=== PATIENT | female | born 1995 | race Caucasian/White ===

== ENCOUNTER 2019-08-25 10:22 | Emergency (ER) | payer OTHER ==
--- NOTE | 2019-08-25 11:05 | ER Document Report ---
HPI - HPI Patient complains to provider of: sore throat Time Seen by Provider: 08/25/19 10:59 Pain Level: 4 Context: This 24-year-old female presents emergency department with complaints of sore throat. Reports she had the flu vaccine on started having body aches an hour later. Reports her throat started hurting on Monday she had a fever on Monday. Denies vomiting and diarrhea. Reports she is been taking Advil for the pain. No known exposure to strep. Associated Symptoms: Fever, Sore throat Exacerbated by: Denies Relieved by: Denies Similar symptoms previously: No Recently seen / treated by doctor: No - EENT EENT: REPORTS: Sore Throat - RESPIRATORY Respiratory: REPORTS: Coughing - REPRODUCTIVE Reproductive: DENIES: : Past Medical History - General Information source: Patient - Social History Smoking Status: Never Smoker Frequency of alcohol use: Occasional Drug Abuse: None Lives with: Family Family History: None Patient has suicidal ideation: No Patient has homicidal ideation: No Surgical Hx: Negative Vertical Provider Document - CONSTITUTIONAL Agree With Documented VS: Yes Exam Limitations: No Limitations General Appearance: WD/WN, No Apparent Distress - looks like she doesn't feel well but nontoxic looking - INFECTION CONTROL TRAVEL OUTSIDE OF THE [place] IN LAST 30 DAYS: No - HEENT HEENT: Atraumatic, Normocephalic, Pharyngeal Erythema - Pharyngeal erythema noted no tonsillar exudate opens mouth wide good airway no trismus clear voice no peritonsillar abscess noted - NECK Neck: Normal Inspection, Supple. negative: Lymphadenopathy-Left, Lymphadenopathy-Right - RESPIRATORY Respiratory: Breath Sounds Normal, No Respiratory Distress. negative: Rhonchi, Wheezing - CARDIOVASCULAR Cardiovascular: Regular Rate, Regular Rhythm - MUSCULOSKELETAL/EXTREMETIES Musculoskeletal/Extremeties: MAEW, FROM - NEURO Level of Consciousness: Awake, Alert, Appropriate Motor/Sensory: No Motor Deficit - DERM Integumentary: Warm, Dry, No Rash Course - Re-evaluation Re-evalutation: 08/25/19 11:46 25-year-old female presents with sore throat does not feel good. Reports history of flu vaccine on body aches and sore throat with fever last night. Strep test was negative. She was instructed on the importance of pushing fluids [facility] She was also instructed on throat culture pending will receive a call should she need antibiotics. She verbalized understand all instructions. Patient has a clear voice respiratory rate even unlabored. Dictation of this chart was performed using voice recognition software; therefore, there may be some unintended grammatical errors. - Vital Signs Vital signs: Temp Pulse Resp BP Pulse Ox 98.7 F 96 18 117/51 L 99 08/25/19 10:29 08/25/19 10:29 08/25/19 10:29 08/25/19 10:29 08/25/19 10:29 Discharge - Discharge Clinical Impression: Sore throat Condition: Stable Disposition: HOME, SELF-CARE Instructions: Sore Throat ([facility]) Additional Instructions: *You have been evaluated for a sore throat Your strep test was negative. A throat culture is pending. You may be contacted in 3 to 4 days should you need antibiotic. In the meantime gargle with warm salt water's in suck on throat lozenges for comfort *Do not let anyone drink/eat after you *Good hand washing *Follow-up with a primary care provider within 1 week. *Return to ED for worsening condition change, needs, trouble swallowing, concerns.
[2019-08-25 11:37] VITALS: BP 107/64
== END 2019-08-25 11:35 | disposition home or self-care (01) ==
LOC: ER 10:22
DX: J02.9 Acute pharyngitis, unspecified (principal); R50.9 Fever, unspecified
CPT/HCPCS: 87070; 87880; 99283

== ENCOUNTER 2020-04-03 14:48 | Emergency (ER) | payer OTHER ==
--- NOTE | 2020-04-03 15:19 | ER Document Report ---
ED Medical Screen (RME) - General Chief Complaint: Abnormal Lab Results Stated Complaint: ABNORMAL LABS Time Seen by Provider: 04/03/20 15:10 Primary Care Provider: LAUREN KNOWLES [Primary Care Provider] - Follow up as needed Notes: Patient is a 24-year-old female who presents to the emergency department with multiple complaints. Patient states that she has a "lump" to the back of her ear. She also has a little bit of chest pain and a sore throat. She saw her primary care provider and was referred here to the emergency department for evaluation of her thyroid and her "lump." Patient states that she is having hea daches from the "lump." Exam: Shoddy raised bump noted to left ear. Slightly enlarged feeling thyroid. I have greeted and performed a rapid initial assessment of this patient. A comprehensive ED assessment and evaluation of the patient, analysis of test results and completion of medical decision making process will be conducted by an additional ED providers. TRAVEL OUTSIDE OF THE [place] IN LAST 30 DAYS: No - Related Data Allergies/Adverse Reactions: No Known Allergies Allergy (Verified 08/25/19 11:22) Home Medications: Singulair. flonase. paxil Past Medical History - Social History Chew tobacco use (# tins/day): No Frequency of alcohol use: Occasional Drug Abuse: None Physical Exam - Vital signs Vitals: Temp Pulse Resp BP Pulse Ox 98.8 F 57 L 16 118/70 100 04/03/20 14:55 04/03/20 14:55 04/03/20 14:55 04/03/20 14:55 04/03/20 14:55 Course - Vital Signs Vital signs: Temp Pulse Resp BP Pulse Ox 98.8 F 57 L 16 118/70 100 04/03/20 14:55 04/03/20 14:55 04/03/20 14:55 04/03/20 14:55 04/03/20 14:55 Doctor's Discharge - Discharge Referrals: [facility] [Primary Care Provider] - Follow up as needed
[2020-04-03 15:53] LABS: ABSOLUTE LYMPHOCYTES (AUTO) 2.5 10^3/uL (0.5-4.7); ABSOLUTE MONOCYTES (AUTO) 0.5 10^3/uL (0.1-1.4); ABSOLUTE NEUT (AUTO) 3.2 10^3/uL (1.7-8.2); BASOPHILS % (AUTO) 0.5 % (0-2); EOSINOPHILS % (AUTO) 0.5 % (0-6); HEMATOCRIT 38.8 % (36.0-47.0); HEMOGLOBIN 13.6 g/dL (12.0-15.5); LYMPHOCYTES % (AUTO) 40.2 % (13-45); MEAN CORPUSCULAR HEMOGLOBIN 30.6 pg (27.0-33.4); MEAN CORPUSCULAR HGB CONC 35.1 g/dL (32.0-36.0); MEAN CORPUSCULAR VOLUME 87 fl (80-97); MONOCYTES % (AUTO) 7.3 % (3-13); PLATELET COUNT 268 10^3/uL (150-450); RED BLOOD COUNT 4.45 10^6/uL (3.72-5.28); RED CELL DISTRIBUTION WIDTH 12.3 % (11.5-14.0); SEGMENTED NEUTROPHILS % (AUTO) 51.5 % (42-78); TOTAL CELLS COUNTED % (AUTO) 100 %; WHITE BLOOD COUNT 6.2 10^3/uL (4.0-10.5)
[2020-04-03 16:02] LABS: ALBUMIN 4.5 g/dL (3.5-5.0); ALKALINE PHOSPHATASE 69 U/L (38-126); ANION GAP 7 (5-19); ASPARTATE AMINO TRANSFERASE 28 U/L (14-36); BILIRUBIN,TOTAL 0.9 mg/dL (0.2-1.3); BLOOD UREA NITROGEN 9 mg/dL (7-20); CALCIUM 9.4 mg/dL (8.4-10.2); CARBON DIOXIDE 24 mmol/L (22-30); CHLORIDE 105 mmol/L (98-107); GLUCOSE 89 mg/dL (75-110); POTASSIUM 3.8 mmol/L (3.6-5.0); TOTAL PROTEIN 7.6 g/dL (6.3-8.2)
--- NOTE | 2020-04-03 16:16 | RADIOLOGY REPORT (SQ) ---
EXAM DESCRIPTION: CHEST SINGLE VIEW IMAGES COMPLETED DATE/TIME: 04/03/2020 4:02 pm REASON FOR STUDY: chest pain COMPARISON: None. EXAM PARAMETERS: NUMBER OF VIEWS: One view. TECHNIQUE: Single frontal radiographic view of the chest acquired. RADIATION DOSE: NA LIMITATIONS: None. FINDINGS: LUNGS AND PLEURA: No opacities, masses or pneumothorax. No pleural effusion. MEDIASTINUM AND HILAR STRUCTURES: No masses. Contour normal. HEART AND VASCULAR STRUCTURES: Heart normal in size. Normal vasculature. BONES: No acute findings. HARDWARE: None in the chest. OTHER: No other significant finding. IMPRESSION: NO ACUTE RADIOGRAPHIC FINDING IN THE CHEST. TECHNICAL DOCUMENTATION: JOB ID: [id number] 2010 [employer]- All Rights Reserved Reading location - IP/workstation name: [email or web address]
[2020-04-03 16:18] LABS: FREE T3 3.68 pg/mL (2.77-5.27); FREE T4 (FREE THYROXINE) 0.93 ng/dL (0.78-2.19)
[2020-04-03 16:31] LABS: THYROID STIMULATING HORMONE 1.52 uIU/mL (0.47-4.68)
--- NOTE | 2020-04-03 17:26 | ER Document Report ---
ED General - General Chief Complaint: Chest Pain Stated Complaint: ABNORMAL LABS Time Seen by Provider: 04/03/20 15:10 Primary Care Provider: BENSON,LAUREN [Primary Care Provider] - Follow up as needed Mode of Arrival: Ambulatory Information source: Patient Notes: 24-year-old female patient presented emergency department chief complaint of abnormal labs and referral by her primary care. Patient reports that she has an enlarged thyroid and a lump behind her left ear. She states that she also has a cough with shortness of breath and her primary care provider wanted her evaluated for these things. Patient is otherwise healthy and has no recent fever. TRAVEL OUTSIDE OF THE [place] IN LAST 30 DAYS: No - Related Data Allergies/Adverse Reactions: No Known Allergies Allergy (Verified 08/25/19 11:22) Home Medications: Singulair. flonase. paxil Past Medical History - General Information source: Patient - Social History Smoking Status: Never Smoker Chew tobacco use (# tins/day): No Frequency of alcohol use: Occasional Drug Abuse: None Family History: None Patient has homicidal ideation: No Review of Systems - Review of Systems Constitutional: No symptoms reported EENT: Other - Neck swelling Cardiovascular: No symptoms reported Respiratory: Cough Gastrointestinal: No symptoms reported Genitourinary: No symptoms reported Female Genitourinary: No symptoms reported Musculoskeletal: No symptoms reported Skin: No symptoms reported Hematologic/Lymphatic: No symptoms reported Neurological/Psychological: No symptoms reported Physical Exam - Vital signs Vitals: Temp Pulse Resp BP Pulse Ox 98.8 F 57 L 16 118/70 100 04/03/20 14:55 04/03/20 14:55 04/03/20 14:55 04/03/20 14:55 04/03/20 14:55 - Notes Notes: PHYSICAL EXAMINATION: GENERAL: Well-appearing, well-nourished and in no acute distress. HEAD: Atraumatic, normocephalic. EYES: Pupils equal round and reactive to light, extraocular movements intact, conjunctiva are normal. ENT: Nares patent, oropharynx clear without exudates. Moist mucous membranes. Palpable postauricular node to left posterior ear. NECK: Normal range of motion, supple, palpable cervical lymphadenopathy. LUNGS: Breath sounds clear to auscultation bilaterally and equal. No wheezes rales or rhonchi. HEART: Regular rate and rhythm without murmurs ABDOMEN: Soft, nontender, nondistended abdomen. No guarding, no rebound. No masses appreciated. Female : deferred Musculoskeletal: Normal range of motion, no pitting or edema. No cyanosis. NEUROLOGICAL: Cranial nerves grossly intact. Normal speech, normal gait. Normal sensory, motor exams PSYCH: Normal mood, normal affect. SKIN: Warm, Dry, normal turgor, no rashes or lesions noted. Course - Re-evaluation Re-evalutation: Microbiology 04/03/20 15:25 Throat Culture - Preliminary Throat Laboratory 04/03/20 04/03/20 04/03/20 15:25 15:25 15:25 WBC 6.2 RBC 4.45 Hgb 13.6 Hct 38.8 MCV 87 MCH 30.6 MCHC 35.1 RDW 12.3 Plt Count 268 Lymph % (Auto) 40.2 [place] % (Auto) 7.3 Eos % (Auto) 0.5 Baso % (Auto) 0.5 Absolute Neuts (auto) 3.2 Absolute Lymphs (auto) 2.5 Absolute Monos (auto) 0.5 Absolute Eos (auto) 0.0 Absolute Basos (auto) 0.0 Seg Neutrophils % 51.5 D-Dimer Sodium 136.3 L Potassium 3.8 Chloride 105 Carbon Dioxide 24 Anion Gap 7 BUN 9 Creatinine 0.50 L Est GFR ( Amer) > 60 Est GFR (MDRD) Non-Af > 60 Glucose 89 Calcium 9.4 Total Bilirubin 0.9 Direct Bilirubin 0.0 Neonat Total Bilirubin Not Reportable Neonat Direct Bilirubin Not Reportable Neonat Indirect Bili Not Reportable AST 28 ALT 16 Alkaline Phosphatase 69 Total Protein 7.6 Albumin 4.5 TSH 1.52 Free T4 0.93 Free T3 pg/mL 3.68 Group A Strep Rapid 04/03/20 04/03/20 15:25 15:25 WBC RBC Hgb Hct MCV MCH MCHC RDW Plt Count Lymph % (Auto) [place] % (Auto) Eos % (Auto) Baso % (Auto) Absolute Neuts (auto) Absolute Lymphs (auto) Absolute Monos (auto) Absolute Eos (auto) Absolute Basos (auto) Seg Neutrophils % D-Dimer 0.32 Sodium Potassium Chloride Carbon Dioxide Anion Gap BUN Creatinine Est GFR ( Amer) Est GFR (MDRD) Non-Af Glucose Calcium Total Bilirubin Direct Bilirubin Neonat Total Bilirubin Neonat Direct Bilirubin Neonat Indirect Bili AST ALT Alkaline Phosphatase Total Protein Albumin TSH Free T4 Free T3 pg/mL Group A Strep Rapid NEGATIVE Chest X-Ray 04/03/20 15:15 IMPRESSION: NO ACUTE RADIOGRAPHIC FINDING IN THE CHEST. Thyroid Ultrasound 04/03/20 15:19 IMPRESSION: 1. Normal thyroid gland. 2. Likely lymph node posterior to the left ear Soft Tissue Neck CT 04/03/20 18:32 IMPRESSION: There are few very small nonspecific cervical nodes. 10 mm postauricular node on the left that has findings suggesting inflammation. Work-up today has been unremarkable. She does have enlarged cervical lymph nodes and also a enlarged postauricular node. Her thyroid was not enlarged on the CT. Her labs were normal. D-dimer was negative. No indication for chest CT at this time. Patient is PERC negative. Patient was given a copy of her labs and radiology report so that she can follow back up with her primary care provider. Patient is in agreement with this plan. - Vital Signs Vital signs: Temp Pulse Resp BP Pulse Ox 98.4 F 67 18 120/67 100 04/03/20 20:27 04/03/20 20:27 04/03/20 20:27 04/03/20 20:27 04/03/20 20:27 - Laboratory Result Diagrams: 04/03/20 15:25 04/03/20 15:25 Laboratory results interpreted by me: 04/03/20 15:25 Sodium 136.3 L Creatinine 0.50 L - Diagnostic Test Radiology reviewed: Image reviewed, Reports reviewed - EKG Interpretation by Me EKG shows normal: Sinus rhythm Rate: Normal Rhythm: NSR - Interpreted by me, no significant ST segment elevations or depressions to suggest ischemia. Discharge - Discharge Clinical Impression: Enlarged lymph nodes, unspecified Condition: Stable Disposition: HOME, SELF-CARE Additional Instructions: Lymphadenopathy You have enlargement of lymph glands, called lymphadenopathy. Lymph glands filter tissue fluids. They help to fight infection. Most of the time, enlarged lymph glands are not serious. Lymph glands may react to a viral or bacterial infection by becoming swollen and painful. When the infection goes away, the glands shrink. Sometimes a lymph gland will remain enlarged for a long time after an infection. Occasionally, a lymph gland may be overwhelmed by infection and form an abscess. If an enlarged lymph gland has signs that are suspicious for tumor, the doctor will recommend a biopsy. A suspicious gland usually is NOT painful, grows very slowly, and is rock-hard to touch. See the doctor or return if there is increasing swelling and redness, high fever, difficulty breathing, or any other change for the worse. Please take medications as prescribed. A copy of your CT was given to you for your primary care provider's review. At this time there is no indication to do a CAT scan of your chest. The ultrasound of your thyroid that you are requesting is something that your primary care provider needs to do on an outpat ient basis. Please return to the emergency department with any new or life- threatening concerns. Prescriptions: Ketorolac Tromethamine [Toradol 10 mg Tablet] 10 mg PO Q6HP PRN #20 PRN Reason: Prednisone 10 mg PO ASDIR PRN #21 tablet PRN Reason: [facility]errals: [facility] [[facility]] - Follow up as needed
--- NOTE | 2020-04-03 17:52 | RADIOLOGY REPORT (SQ) ---
EXAM DESCRIPTION: U/S THYROID/SFT TISS HD NECK IMAGES COMPLETED DATE/TIME: 04/03/2020 5:37 pm REASON FOR STUDY: eval thyroid and "lump" on posterior left ear COMPARISON: None. TECHNIQUE: Dynamic and static moise-scale images acquired of the thyroid gland. Selected additional c olor/power Doppler images recorded. All images stored to PACS. LIMITATIONS: None. FINDINGS: RIGHT LOBE: 4.9 x 1.6 x 1.8 cm. Homogeneous echotexture. No cystic or solid masses. LEFT LOBE: 4.7 x 1.5 x 1.4 cm. Homogeneous echotexture. No cystic or solid masses. ISTHMUS: 3 mm. Homogeneous echotexture. No cystic or solid masses. OTHER: There is a hypoechoic nodule posterior to the left ear that measures 10 x 7 x 4 mm. IMPRESSION: 1. Normal thyroid gland. 2. Likely lymph node posterior to the left ear TECHNICAL DOCUMENTATION: JOB ID: [id number] 2010 [employer]- All Rights Reserved Reading location - IP/workstation name: [email or web address]
--- NOTE | 2020-04-03 19:39 | RADIOLOGY REPORT (SQ) ---
EXAM DESCRIPTION: CT SOFT TISSUE NECK WITH IMAGES COMPLETED DATE/TIME: 04/03/2020 7:10 pm REASON FOR STUDY: eval neck and L post-auricular area COMPARISON: Ultrasound 04/03/2020 TECHNIQUE: Post IV contrasted scanning from skull base through lung apices with review of bone, soft tissue and lung windows. Reconstructed coronal and sagittal MPR images reviewed. All images stored on PACS. All CT scanners at this facility use dose modulation, iterative reconstruction, and/or weight based d osing when appropriate to reduce radiation dose to as low as reasonably achievable (ALARA). [facility]: Dose Right [facility]: CareDose [facility]: Dose Right [facility]: Teradose 4D [facility]: DigitalChalk CONTRAST TYPE AND DOSE: 75 cc Omnipaque 350- low osmolar. RENAL FUNCTION: BUN 9 creatinine 0.5 RADIATION DOSE: CT Rad equipment meets quality standard of care and radiation dose reduction techniq ues were employed. CTDIvol: 13.1 mGy. DLP: 396 mGy-cm. . LIMITATIONS: None. FINDINGS: SKULL BASE: Intact. MAJOR SALIVARY GLANDS: No solid or cystic masses. No inflammatory changes. LYMPHADENOPATHY: There are few small nonspecific cervical nodes. There is about a 10 mm postauricula r node on the left that has is a somewhat low-density center. MUCOSAL MASSES OR ASYMMETRY: No mucosal masses or asymmetry. LARYNX/CORDS: No abnormal findings. VASCULAR STRUCTURES: The major vessels are patent. LUNG APICES: Clear. BONES: Intact. THYROID: Normal size. No masses. PARANASAL SINUSES: Clear. OTHER: No other significant finding. IMPRESSION: There are few very small nonspecific cervical nodes. 10 mm postauricular node on the le ft that has findings suggesting inflammation. TECHNICAL DOCUMENTATION: JOB ID: [id number] Quality ID # [id number]: Final reports with documentation of one or more dose reduction techniques (e.g., Au tomated exposure control, adjustment of the mA and/or kV according to patient size, use of iterative reconstruction technique) 2010 [employer]- All Rights Reserved Reading location - IP/workstation name: [email or web address]
--- NOTE | 2020-04-03 20:18 | EKG REPORT ---
SEVERITY:- BORDERLINE ECG - SINUS RHYTHM BORDERLINE T WAVE ABNORMALITIES : Confirmed by: Doug Velez MD 03-Apr-2020 20:17:43
[2020-04-03 20:26] VITALS: BP 120/67
== END 2020-04-03 20:27 | disposition home or self-care (01) ==
LOC: ER 14:48
DX: R59.1 Generalized enlarged lymph nodes (principal); R07.9 Chest pain, unspecified; J02.9 Acute pharyngitis, unspecified
CPT/HCPCS: 36415; 70491; 71045; 76536; 80053; 84439; 84443; 84481; 85025; 85379; 87070; 87880; 93005; 93010; 99284